=== PATIENT | male | born 1985 | race Caucasian/White ===

== ENCOUNTER 2016-03-07 12:31 | Emergency (ER) | payer OTHER ==
[~2016-03-07] VITALS: Ht 327.7 cm; Wt 92.9 kg
[2016-03-07 12:34] VITALS: TEMP 36.6; Ht 327.7 cm; Wt 92.9 kg
--- NOTE | 2016-03-07 12:47 | EMERGENCY ROOM VISIT NOTE ---
ED Visit Note First contact with patient: 12:37 CHIEF COMPLAINT: Suture removal suture removal HISTORY OF PRESENT ILLNESS: This 31-year-old male patient presents to the emergency department ambulatory for removal of sutures from his right hand. He had the sutures placed approximately 2 weeks ago. He has had no issues with healing. He denies any signs of infection. He also reports that he has had fullness in his right ear for the past 2 years as well as decreased hearing. He denies any pain in the ear. REVIEW OF SYSTEMS: A review of systems was performed with positives and pertinent negatives listed in the history of present illness. All other systems were reviewed and are negative. ALLERGIES: No known drug allergies MEDICATIONS: No chronic Medications PMH: No Significant past medical history. SOCIAL HISTORY: The patient lives locally with family. PHYSICAL EXAM: VITALS: Vitals are noted on the nurse's note and reviewed by myself. Vital signs stable. GENERAL: This is a 31-year-old male, in no acute distress, nondiaphoretic, well- developed well-nourished. SKIN: There is a sutured wound on the dorsal aspect of the right hand with no signs of infection. EARS: Right external auditory canal is normal. Tympanic membrane is not erythematous with no effusion. EMERGENCY DEPARTMENT COURSE: The patient was evaluated as above. The sutures were removed without difficulty. There was no evidence of infection. The patient did request on his right ear looked at. There are no signs of infection and the patient reports he has had ongoing issues with the ear. He was recommended to take [id number] antihistamines and follow-up with ENT. He verbalized understanding of my assessment and treatment plan and was discharged home in good condition. DIAGNOSIS: Suture removal, ear fullness Current/Historical Medications No Active Prescriptions or Reported Meds Allergies Coded Allergies: No Known Allergies (Unverified , 03/02/16) Vital Signs Date Time Temp Pulse Resp B/P Pulse Ox O2 Delivery O2 Flow Rate FiO2 03/07/16 12:54 81 16 95 03/07/16 12:34 36.6 106 18 142/83 95 Room Air Departure Information Impression Primary Impression: Encounter for removal of sutures Additional Impression: Sensation of fullness in right ear Dispostion Home / Self-Care Condition GOOD Prescriptions No Active Prescriptions or Reported Meds Referrals No Doctor, Assigned (PCP) Amanda Rainey M.D. Patient Instructions A Signature Page, [facility] I Had Cancer Additional Instructions Wash the remaining crusts off and continue with your daily activities. Follow-up with an ENT surgeon for your chronic ear fullness.
[2016-03-07 12:54] VITALS: BP 147/98; PULSE 81; O2SAT 95
== END 2016-03-07 13:01 | disposition home or self-care (01) ==
LOC: C.EDB 12:33 → C.EDD 13:01
DX: Z48.02 Encounter for removal of sutures (principal); H93.91 Unspecified disorder of right ear

== ENCOUNTER 2016-10-08 14:23 | Emergency (ER) | payer OTHER ==
[~2016-10-08] VITALS: Ht 175.3 cm; Wt 99.6 kg
[2016-10-08 14:30] VITALS: TEMP 36.6; Ht 175.3 cm; Wt 99.6 kg
[2016-10-08] MEDS ORDERED: XYLOCAINE 1%/SOD BICARB 20 ML VIAL INFIL ONE (15:00)
--- NOTE | 2016-10-08 15:22 | EMERGENCY ROOM VISIT NOTE ---
ED Visit Note First contact with patient: 14:43 CHIEF COMPLAINT: Facial laceration HISTORY OF PRESENT ILLNESS: This 31-year-old male presents the ER with chief complaint of a laceration on his left eyelid. The patient was at work and was releasing a strap when it came back and hit him on the left upper eyelid. The patient denies any visual changes or dizziness. The patient's tetanus status is unknown. REVIEW OF SYSTEMS: 6 system review was performed and was negative unless stated otherwise in history of present illness. PMH: The patient is healthy; there is no significant medical or surgical history. SOCIAL HISTORY: Patient states that he just quit smoking. He admits to occasional alcohol use. PHYSICAL EXAM: Vital Signs: Were reviewed Reviewed Nurse's notes. GEN.: 31-year -old white male appears in no acute distress. MENTAL Status: EYES: Pupils are round, equal, and react briskly to light. FACE: There is a 2.5 cm laceration on the left upper eyelid whose edges are gaping apart. There is no active bleeding and no foreign material in the wound. EMERGENCY DEPARTMENT COURSE: The patient was evaluated. The patient was given Adacel. Wound Repair: Complexity: Basic. Verbal consent was obtained after the risks and benefits were explained, including but not limited to bleeding, scarring, infection, pain, and bone/joint /nerve damage. The skin was prepped with betadine and a sterile field set. The wound was anesthetized with 2.0 ml of 1% buffered lidocaine. Copious irrigation was performed using sterile saline. The wound was explored for foreign bodies and none found. Debridement was not performed. The wound edges were approximated using 6-0 Ethilon with 6 simple interrupted sutures. Hemostasis and excellent approximation was achieved. Antibacterial ointment and a sterile dressing applied. Detailed wound care instructions and signs and symptoms of infection reviewed with the patient. No complications and the patient tolerated the procedure well. DIAGNOSIS: 2.5 cm facial laceration DISCHARGE INSTRUCTIONS: Keep wound clean and dry. No water on the area for 12- 24 hrs then no soaking until sutures removed. Do not allow any crusting or dried blood to accumulate on sutures. If this occurs, use a 1:1 solution of hydrogen peroxide/water on a Q-tip to clean the wound. Use an antibiotic ointment for 3-4 days, then let wound dry. Suture removal in 6 days. Follow up sooner for any signs of infection (increasing redness, swelling, drainage). Ice and elevate for swelling and pain. Tylenol 650 mg every 6 hrs for pain. Patient condition was: stable. Please see Emergency Department Medical Record for additional patient information; this may include discharge diagnosis, interpretation of EKG, laboratory, and/or radiologic studies, Emergency Department course, etc. Current/Historical Medications No Active Prescriptions or Reported Meds Allergies Coded Allergies: No Known Allergies (Unverified , 10/08/16) Vital Signs Date Time Temp Pulse Resp B/P (MAP) Pulse Ox O2 Delivery O2 Flow Rate FiO2 10/08/16 14:30 36.6 78 18 148/93 97 Room Air Medications Administered Medications (Trade) Dose Ordered Sig/Irving Route Start Time Stop Time Status Last Admin Dose Admin Lidocaine HCl (Buffered Lidocaine 1% Inj) 20 ml NOW ONCE INFIL 10/08/16 15:00 10/08/16 15:01 DC 10/08/16 14:58 20 ML Departure Information Prescriptions No Active Prescriptions or Reported Meds Referrals Breana Walker D.O. (PCP) Patient Instructions My [facility]
[2016-10-08 15:26] VITALS: BP 147/97; PULSE 81; O2SAT 99
[2016-10-08] MEDS ORDERED: DIPHTHERIA/TETANUS/PERTUSSIS 0.5 ML SYR/VIAL IM. ONE (15:30)
== END 2016-10-08 15:34 | disposition home or self-care (01) ==
LOC: C.EDB 14:24 → C.EDD 15:34
DX: S01.112A Laceration without foreign body of left eyelid and periocular area, initial encounter (principal); W22.8XXA Striking against or struck by other objects, initial encounter; Y99.0 Civilian activity done for income or pay

== ENCOUNTER 2016-10-14 15:34 | Emergency (ER) | payer OTHER ==
[~2016-10-14] VITALS: Ht 175.3 cm; Wt 97.0 kg
[2016-10-14 15:37] VITALS: BP 129/82; PULSE 78; TEMP 36.6; O2SAT 94; Ht 175.3 cm; Wt 97.0 kg
--- NOTE | 2016-10-14 15:48 | EMERGENCY ROOM VISIT NOTE ---
ED Visit Note First contact with patient: 15:39 CHIEF COMPLAINT: Suture removal This patient returns to the ED today for removal of sutures that were placed 6 days ago. There has been no swelling, redness, or drainage from the wound. The patient feels like the laceration is healing well. REVIEW OF SYSTEMS: Head: No headache, injury or neck pain. Skin: No rash, new lesions, or masses. General: No fever or chills, fatigue, loss of appetite , or significant recent weight gain or loss. PMH: Reviewed and unchanged from prior visit. SOCIAL HISTORY: Patient lives at home. PHYSICAL EXAM: Vital Signs: Reviewed Nurse's notes. There is a sutured wound below the left eyebrow with no signs of infection. There is no erythema, swelling, or tenderness. EMERGENCY DEPARTMENT COURSE: The sutures were removed without any difficulty and there was no separation of the wound edges. Medication reconciliation: I attest that I have personally reviewed the patient' s current medication list. Blood pressure screening : Patient was found to have normal blood pressure on screening and does not require follow-up. Current/Historical Medications No Active Prescriptions or Reported Meds Allergies Coded Allergies: No Known Allergies (Unverified , 10/08/16) Vital Signs Date Time Temp Pulse Resp B/P (MAP) Pulse Ox O2 Delivery O2 Flow Rate FiO2 10/14/16 15:37 36.6 78 16 129/82 94 Departure Information Impression Primary Impression: Encounter for removal of sutures Prescriptions No Active Prescriptions or Reported Meds Referrals No Doctor, Assigned (PCP) Patient Instructions My [facility]
== END 2016-10-14 15:48 | disposition home or self-care (01) ==
LOC: C.EDB 15:36 → C.EDD 15:48
DX: S01.112D Laceration without foreign body of left eyelid and periocular area, subsequent encounter (principal); X58.XXXD Exposure to other specified factors, subsequent encounter